=== PATIENT | male | born 1995 | race Caucasian/White ===

== ENCOUNTER 2020-09-21 05:48 | Emergency (ER) | payer SELFPAY ==
[2020-09-21 06:08] VITALS: BP 142/99; PULSE 98; RESP 16; TEMP 36.7; O2SAT 98; BMI 20.3
--- NOTE | 2020-09-21 06:17 | XRR_ITS ---
PROCEDURE INFORMATION: Exam: XR Cervical Spine Exam date and time: 09/21/2020 6:17 AM Age: 25 years old Clinical indication: Neck pain; Additional info: Pain/closed head injury TECHNIQUE: Imaging protocol: XR of the cervical spine. Views: 2 or 3 views. COMPARISON: No relevant prior studies available. FINDINGS: Bones/joints: The vertebral bodies maintain height and alignment. The facets align normally. The spinolaminar line is intact. The atlantodens interval is not widened. No disc space narrowing. No fracture. Soft tissues: No prevertebral soft tissue swelling. XR/XR cervical spine 3V* [id number] IMPRESSION: Normal.
--- NOTE | 2020-09-21 06:17 | CTR_ITS ---
PROCEDURE INFORMATION: Exam: CT Head Without Contrast Exam date and time: 09/21/2020 6:17 AM Age: 25 years old Clinical indication: Injury or trauma; Other: Close head injury; Laceration; Without residual foreign body; Head, generalized; Injury details: Cut above RT ear and on RT cheek; Additional info: Cleased head injury TECHNIQUE: Imaging protocol: Computed tomography of the head without contrast. Radiation optimization: All CT scans at this facility use at least one of these dose optimization techniques: automated exposure control; mA and/or kV adjustment per patient size (includes targeted exams where dose is matched to clinical indication); or iterative reconstruction. COMPARISON: No relevant prior studies available. RADIATION DOSE METRICS: Total DLP (mGy-cm): 698.67 FINDINGS: Brain: No acute appearing brain parenchymal abnormality. No intracranial hemorrhage. No extraaxial fluid collections. Cerebral ventricles: No hydrocephalus. Paranasal sinuses: The visualized paranasal sinuses are aerated. Mastoid air cells: The visualized mastoid air cells are aerated. Bones/joints: No calvarial fracture. Soft tissues: Right lateral scalp superficial soft tissue injury without radiopaque foreign body. CT/CT head wo con* [id number] IMPRESSION: No intracranial injury or calvarial fracture. Radiation Dose CTDIVOL = (mGy): DLP = 698.67 (mGy-cm)
--- NOTE | 2020-09-21 06:18 | W.ED.WOUNDLC ---
HPI - Wound/Laceration General: Chief Complaint: Wound/Laceration Stated Complaint: Cut on Face Time Seen by Provider: 09/21/20 06:06 History of Present Illness: HPI narrative: 25-year-old male presents emergency room with complaints of laceration to the face. He has a laceration to his right cheek and a small laceration just above the right ear. He is uncertain how he got those. Patient answers all questions regarding the circumstances of his injuries as I do not know I do not remember. He denies any other pain or injury anywhere else. Onset (ago): unknown Location: scalp and face Patient tetanus UTD: No Context: other (Patient does not recall) Associated symptoms: Denies chills, fever(s), foreign body sensation, inability to move, nausea, numbness, pain, syncope or vomiting Review of Systems Const: Denies: fever(s) or chills ENMT: Denies: throat pain, ear or mastoid pain, nasal discharge or nasal congestion Card: Denies: syncope Resp: Denies: dyspnea, productive cough or non-productive cough GI: Denies: nausea or vomiting : Denies: flank pain, dysuria, urinary frequency or urinary urgency Skin/Breast: Denies: rash or pruritus PFSH ED PFSH: Family History Other Anxiety Hypertension Social History Smoking and tobacco status: current every day smoker cigarettes Packs smoked per day: 1 Years cigarettes smoked: 10 Second hand smoke exposure: Yes Alcohol intake: current Alcohol intake frequency: 0-2 Drinks per Day Alcohol type: beer and hard liquor Lives independently: Yes Household members: family and children Marital status: service: No Current occupational status: employed Current gender identity: Male Special mika needs: No Agree to transfusion: Yes Physical Exam Const: COMMON NORMALS: no acute distress GENERAL APPEARANCE: cooperative and comfortable ORIENTATION/CONSCIOUSNESS: Yes awake, Yes oriented to person, Yes oriented to place and Yes oriented to time HENMT: COMMON NORMALS: normocephalic, hearing grossly normal bilaterally, external ears normal, EAC's normal, TM's normal bilaterally, Normal nasal mucous membranes and turbinates present, moist oral mucous membranes and oropharynx normal HEAD & SCALP: normocephalic NOSE: Normal nasal mucous membranes and turbinates present EXTERNAL EAR: Yes external ears normal EXTERNAL AUDITORY CANAL: EAC's normal TYMPANIC MEMBRANE: TM's normal bilaterally OTHER: Avulsion of skin across the right zygomatic arch there is an area about 1 cm leg 5 to 6 cm in width with the skin is fully avulsed him unable to approximate the skin edges. There are small short adjacent lacerations not amenable to repair. There is a laceration above the right ear and the scalp that is also a shallow avulsion type laceration there is a bit of viable skin present it hold disposition well. Mild erythema of all other within the outer helix of the right ear which also holds in position well and is not full-thickness. Eye: COMMON NORMALS: Equal, round and reactive pupils present, EOMs intact bilaterally, conjunctivae normal and no scleral icterus CONJUNCTIVA: Yes conjunctivae normal PUPIL: Yes Equal, round and reactive pupils present Neck/C-Spine: COMMON NORMALS: full ROM, no lymphadenopathy, supple and no JVD Resp: COMMON NORMALS: normal respiratory effort, No retractions, No use of accessory muscles and clear to auscultation bilaterally AUSCULTATION: clear to auscultation bilaterally Cardio: COMMON NORMALS: no JVD, regular rate, regular rhythm and No murmurs present (Cardio) RATE: regular rate RHYTHM: regular rhythm GI: COMMON NORMALS: Soft to palpation and No hepatosplenomegaly present AUSCULTATION: Yes normoactive bowel sounds PALPATION: Yes Soft to palpation, No Tenderness to palpation present (GI), No Guarding due to palpation present (GI) and Yes No hepatosplenomegaly present Extremity: COMMON NORMALS: normal to inspection, capillary refill normal, no clubbing, cyanosis or edema, no calf tenderness and no pedal edema Neuro: SENSORIUM/ORIENTATION: Yes oriented to person, Yes oriented to place and Yes oriented to time Skin: COMMON NORMALS: no rashes or lesions noted GENERAL SKIN EXAM: no rashes or lesions noted Course Vital Signs: Vital signs: Vital Signs Temperature 98.6 F 09/21/20 07:23 Pulse Rate 91 09/21/20 07:23 Respiratory Rate 16 09/21/20 07:23 Blood Pressure 134/98 09/21/20 07:23 Pulse Oximetry 98 09/21/20 07:23 MDM - Wound/Laceration MDM Narrative: Medical decision making narrative: None of these areas are really amenable to suturing. The avulsions in the scalp and on the right ear the skin is too viable placing sutures would not really improve cosmetic results and would likely strangulate of the tissue trying to be reapproximated. The avulsion on the right cheek there is no way to approximate without undermining extending and revising the wound fairly extensively. Would allow this to heal by secondary intent and he can pursue plastics revision if he has significant defect. At this point I would recommend that he use topical antibiotic. I did apply silver nitrate to areas in the ear and on the scalp that had bleeding. CT of the head x-ray of the neck are unremarkable. Patient repeatedly asked how this happened he either declines to answer and at other times says he just does not remember but will not discuss with us any of the events leading up to her surrounding it he simply states he does not remember. He denies loss of consciousness. Discharge Plan Discharge Patient Disposition: Home Clinical Impression: Avulsion of skin, Laceration Condition: Stable Prescriptions: No Action venlafaxine [Effexor XR] 75 mg capsule,extended release 24hr 75 mg PO QAM Qty: 30 RF: 0 Discharge Orders: Discharge ED (Routine); Ordered 09/21/20 Ordered By: Jonathan Milton Discharge Diet: Usual diet Discharge Activity: Increase activity as tolerated Patient Instructions: Opioid Safety Coding Level of Care Code ED Thoracic Medicine Specialist for Brianne Fwjarad Exam Comprehensive
[2020-09-21] MEDS: silver nitrate applicator 2 EACH TOPICAL (07:22)
[2020-09-21] MEDS: mupirocin oint 22 gm 1 APPLIC TOPICAL (07:22)
[2020-09-21 07:23] VITALS: BP 134/98; PULSE 91; RESP 16; TEMP 37; O2SAT 98
== END 2020-09-21 07:35 | disposition home or self-care (01) ==
PROVIDERS: Emergency Provider Family Medicine
DX: S01.311A Laceration without foreign body of right ear, initial encounter (principal); S01.01XA Laceration without foreign body of scalp, initial encounter; F17.210 Nicotine dependence, cigarettes, uncomplicated; X58.XXXA Exposure to other specified factors, initial encounter
CPT/HCPCS: 70450; 72040; 99283

== ENCOUNTER 2023-02-24 11:56 | Emergency (ER) | payer SELFPAY ==
[2023-02-24 12:22] VITALS: BP 127/82; PULSE 103; RESP 18; TEMP 36.7; O2SAT 99; BMI 20.3
[2023-02-24 12:26] LABS: Basophils # 0.1 10^3/uL (0.0-0.1); Basophils % 0.4 %; Eosinophils # 0.3 10^3/uL (0.0-0.8); Eosinophils % 2.7 %; Hematocrit 52.3 % (37-53); Lymphocytes # 2.4 10^3/uL (0.8-4.8); Lymphocytes % 20.5 %; Mean Corpuscular HGB Conc 32.7 g/dL (30-55); Mean Corpuscular Hemoglobin 31.1 pg (27-33); Mean Corpuscular Volume 95.1 fl (82-101); Mean Platelet Volume 10.3 fL (7.4-10.4); Monocytes # 0.8 10^3/uL (0.2-0.9); Monocytes % 6.5 %; Neutrophils # 8.26 10^3/uL (1.8-7.7); Neutrophils % 69.6 %; Nucleated Red Blood Cells % 0 %; Platelet Count 244 10^3/cmm (157-399); Red Cell Distribution Width 12.4 % (12.1-15.1); White Blood Count 11.88 10^3/uL (3.29-11.43)
[2023-02-24 12:46] LABS: Alanine Aminotransferase 19 U/L (0-41); Albumin Level 4.3 g/dL (3.5-5.2); Alkaline Phosphatase 75 U/L (40-130); Anion Gap 12.3 (5-19); Aspartate Amino Transferase 16 U/L (0-40); Blood Urea Nitrogen 8 mg/dL (6-20); Calcium 9.3 mg/dL (8.5-10.5); Carbon Dioxide 26 mmol/L (22-29); Chloride 106 mmol/L (98-107); Globulin 2.9 g/dL (1.3-4.6); Glomerular Filtration Rate 99.8 mL/min (90-130); Glucose 134 mg/dL (65-115); Lipase 26 U/L (13-60); Osmolality Calculated 290 mOsm/kg (285-295); Potassium 4.3 mmol/L (3.5-5.1); Sodium 140 mmol/L (136-145); Total Bilirubin 0.9 mg/dL (0.15-1.2); Total Protein 7.2 g/dL (6.6-8.7)
== END 2023-02-24 16:06 | disposition left against medical advice (07) ==
PROVIDERS: Emergency Medicine; Emergency Provider Family Medicine; PCP Family Medicine
DX: Z53.21 Procedure and treatment not carried out due to patient leaving prior to being seen by health care provider (principal)
CPT/HCPCS: 36415; 80053; 83690; 85025

== ENCOUNTER 2023-08-11 13:54 | Emergency (ER) | payer SELFPAY ==
[2023-08-11 14:00] VITALS: BP 140/71; PULSE 105; TEMP 36.7; O2SAT 98; BMI 20.6
[2023-08-11 14:58] LABS: Basophils # 0.1 10^3/uL (0.0-0.1); Basophils % 0.4 %; Eosinophils # 0.3 10^3/uL (0.0-0.8); Eosinophils % 1.9 %; Hematocrit 47.6 % (37-53); Lymphocytes # 2.1 10^3/uL (0.8-4.8); Lymphocytes % 15.7 %; Mean Corpuscular HGB Conc 32.1 g/dL (30-55); Mean Corpuscular Hemoglobin 30.5 pg (27-33); Mean Corpuscular Volume 94.8 fl (82-101); Mean Platelet Volume 9.8 fL (7.4-10.4); Monocytes % 7.5 %; Neutrophils # 9.88 10^3/uL (1.8-7.7); Neutrophils % 73.8 %; Nucleated Red Blood Cells % 0 %; Platelet Count 285 10^3/cmm (157-399); Red Blood Count 5.02 10^6/uL (3.85-5.65); Red Cell Distribution Width 13.2 % (12.1-15.1)
[2023-08-11 15:11] LABS: Alanine Aminotransferase 25 U/L (0-41); Albumin Level 4.1 g/dL (3.5-5.2); Alkaline Phosphatase 132 U/L (40-130); Anion Gap 14.9 (5-19); Aspartate Amino Transferase 26 U/L (0-40); Blood Urea Nitrogen 7 mg/dL (6-20); Carbon Dioxide 25 mmol/L (22-29); Chloride 101 mmol/L (98-107); Globulin 3.4 g/dL (1.3-4.6); Glomerular Filtration Rate 132.4 mL/min (90-130); Glucose 101 mg/dL (65-115); Osmolality Calculated 282 mOsm/kg (285-295); Potassium 3.9 mmol/L (3.5-5.1); Sodium 137 mmol/L (136-145); Total Bilirubin 0.6 mg/dL (0.15-1.2); Total Protein 7.5 g/dL (6.6-8.7)
[2023-08-11 15:26] LABS: Bilirubin Urine Neg (Negative); Blood Urine 3+ (Negative); Glucose Urine UA Norm (Normal); Ketones Urine Negative (Negative); Nitrate Urine Negative (Negative); Protein Urine 3+ (Negative); Sulfosalicylic Acid Urine Positive (Negative); Urine Appearance Cloudy (CLEAR); Urine Color Red (Yellow); Urobilinogen Urine Norm (Negative); pH Urine 9 (5-7)
[2023-08-11 15:27] LABS: Add Urine Microscopic? YES; Leukocyte Esterase Urine 1+ (Negative)
[2023-08-11 15:30] LABS: Add Urine Culture? Yes; Bacteria Urine 1+ /hpf; Mucus Urine TRACE /hpf; RBC Urine TOO NUMEROUS TO CNT /hpf (0-2)
--- NOTE | 2023-08-11 15:34 | CTR_ITS ---
PROCEDURE INFORMATION: Exam: CT Abdomen And Pelvis Without Contrast Exam date and time: 08/11/2023 3:45 PM Age: 28 years old Clinical indication: Other: Hematuria; Additional info: Blood in urine, back pain TECHNIQUE: Imaging protocol: Computed tomography of the abdomen and pelvis without contrast. Axial, coronal and sagittal reformatted images were created and reviewed. Radiation optimization: All CT scans at this facility use at least one of these dose optimization techniques: automated exposure control; mA and/or kV adjustment per patient size (includes targeted exams where dose is matched to clinical indication); or iterative reconstruction. COMPARISON: No relevant prior studies available. RADIATION DOSE METRICS: Total DLP (mGy-cm): 385.06 FINDINGS: Lungs: Linear stranding and groundglass at the lung bases, likely due to atelectasis and/or scarring. Pleural spaces: Nodular pleural thickening in the left lower lobe. Diaphragm: Small hiatal hernia. Liver: Mild hepatomegaly. Gallbladder and bile ducts: Subtle dependent hyperattenuation in the gallbladder lumen, likely secondary to sludge and/or small stones. Pancreas: Unremarkable. Spleen: Unremarkable. Adrenal glands: Normal. No mass. Kidneys and ureters: No mass. No radiodense calculi. No hydronephrosis. Stomach and bowel: No bowel wall thickening. No obstruction. No pneumatosis. Appendix: Normal. Intraperitoneal space: No free fluid. No organized fluid collection. No free air. Vasculature: Unremarkable. No aneurysm. Lymph nodes: No pathologically enlarged lymph nodes. Urinary bladder: Lobular dependent hyperattenuation in the urinary bladder, likely blood products. Reproductive: Unremarkable. Bones/joints: No acute osseous abnormality. Mild degenerative changes. Soft tissues: Unremarkable. CT/CT kidney stone [id number] IMPRESSION: 1. Lobular dependent hyperattenuation in the urinary bladder, likely blood products. If clinically indicated, cystoscopy may be useful to exclude an underlying mass lesion. 2. Additional findings, as above.
--- NOTE | 2023-08-11 15:40 | W.ED.MALEGU ---
Documented by User: BRIGHT Araya 08/11/23 16:26 HPI - Male Genitourinary General: Chief complaint: Urogenital-Male Stated complaint: Passing Blood Time Seen by Provider: 08/11/23 14:24 Source: patient Mode of arrival: ambulatory Limitations: no limitations History of Present Illness: Patient is a 28-year-old male presenting to the emergency department complaining of hematuria onset last night. He has had this in the past, states that it occurs after he has sexual intercourse. He also states that last night's onset of hematuria began after having intercourse. States he has been passing clots, and this is only continued to get worse as he has noticed continuing hematuria today. He also notes some burning with urination as well as some back pain. Denies any fever, nausea, vomiting, or other symptoms at this time. Denies history of STDs. No trauma reported. MD Complaint: other (Hematuria/dysuria) Onset (ago): day(s) Duration: constant Context: other (After sexual intercourse) Associated symptoms: Reports dysuria and hematuria; Deny nausea or vomiting Related Data: Sexually active: Yes Review of Systems General: Reports: 10 or more systems reviewed and unremarkable except in HPI and below Const: Denies: fever(s), chills, change in appetite, change in weight or diaphoresis ENMT: Denies: throat pain or hoarseness Card: Denies: chest pain, palpitations or lightheadedness Resp: Denies: dyspnea, productive cough or wheezing GI: Denies: abdominal pain, nausea, vomiting, diarrhea, constipation, bloating, change in stool character or hematochezia : Reports: dysuria and hematuria; Denies: flank pain, difficulty urinating, urinary frequency or urinary urgency Musc: Reports: back pain; Denies: neck pain Skin/Breast: Denies: rash or new lesions Neuro: Denies: headache(s) or dizziness PFSH ED PFSH: Family History Other Anxiety Hypertension Social History Smoking and tobacco/nicotine status: current every day tobacco/nicotine user cigarettes Packs smoked per day: 1 Years cigarettes smoked: 10 Second hand smoke exposure: Yes Alcohol intake: current Alcohol intake frequency: 0-2 Drinks per Day Alcohol type: beer and hard liquor Substance/Drug Use: never Lives independently: Yes Household members: family and children Marital status: service: No Current occupational status: employed Current gender identity: Male Special mika needs: No Agree to transfusion: Yes Physical Exam Const: COMMON NORMALS: no acute distress, average body habitus, patient oriented x3, no limitations, healthy appearing, alert and well nourished GENERAL APPEARANCE: cooperative and comfortable ORIENTATION/CONSCIOUSNESS: Yes awake HENMT: COMMON NORMALS: normocephalic, atraumatic, hearing grossly normal bilaterally, external ears normal, Normal external nose present, Normal nasal mucous membranes and turbinates present and moist oral mucous membranes HEAD & SCALP: normocephalic and atraumatic NOSE: Normal external nose present and Normal nasal mucous membranes and turbinates present EXTERNAL EAR: Yes external ears normal Eye: COMMON NORMALS: Equal, round and reactive pupils present, EOMs intact bilaterally, conjunctivae normal and normal visual rousseau by confrontation CONJUNCTIVA: Yes conjunctivae normal PUPIL: Yes Equal, round and reactive pupils present Neck/C-Spine: COMMON NORMALS: full ROM, supple, no meningeal signs and no JVD Resp: COMMON NORMALS: normal respiratory effort, No retractions, No use of accessory muscles and clear to auscultation bilaterally AUSCULTATION: clear to auscultation bilaterally, no crackles, no rales, no rhonchi and no wheezes Cardio: COMMON NORMALS: no JVD, regular rate, regular rhythm, S1 normal heart sound present, S2 normal heart sound present, No gallops present (Cardio), No clicks present (Cardio), No murmurs present (Cardio), No rub (Cardio) and Peripheral pulses 2+ throughout RATE: regular rate RHYTHM: regular rhythm HEART SOUNDS: S1 normal heart sound present and S2 normal heart sound present PERIPHERAL PULSES: Peripheral pulses 2+ throughout GI: COMMON NORMALS: Normal to inspection, nondistended, normoactive bowel sounds present, Soft to palpation, non-tender, No hepatosplenomegaly present and no masses AUSCULTATION: Yes normoactive bowel sounds PALPATION: Yes Soft to palpation, No Guarding due to palpation present (GI), No Rigid due to palpation and Yes No hepatosplenomegaly present RECTAL EXAM: Yes deferred : COMMON NORMALS: Yes no CVA tenderness BLADDER/KIDNEY EXAM: Yes no CVA tenderness Back/Pelvis: COMMON NORMALS: no CVA tenderness Extremity: COMMON NORMALS: normal to inspection and full ROM Neuro: COMMON NORMALS: patient oriented x3, moves all extremities, no focal motor deficits and no sensory deficits noted SENSORIUM/ORIENTATION: Yes alert MENINGEAL SIGNS: Yes no meningeal signs Psych: COMMON NORMALS: mental status grossly normal, cooperative and speech normal SPEECH: Yes normal speech Skin: COMMON NORMALS: no rashes or lesions noted GENERAL SKIN EXAM: no rashes or lesions noted Course Vital Signs: Vital signs: Vital Signs Temperature 98.0 F 08/11/23 14:00 Pulse Rate 96 08/11/23 16:44 Respiratory Rate 20 H 08/11/23 16:44 Blood Pressure 135/85 08/11/23 16:44 Pulse Oximetry 98 08/11/23 16:44 Oxygen Delivery Me thod Room Air 08/11/23 14:00 [facility] - Male Medical Decision Making Patient presented for hematuria beginning last night. History of same, which followed sexual intercourse. His urinalysis revealed signs of infection as well as significant amount of red blood cells, too numerous to quantify. I did run gonorrhea chlamydia from his urine, will follow these results however we will also treat empirically with a shot of ceftriaxone in the emergency department and doxycycline to take at home. I will refer him to urology for any further evaluation, potentially cystoscopy to evaluate for potential other etiologies of his hematuria, as CT abdomen pelvis cannot definitively rule out a mass lesion. His lab work was unremarkable. He will be discharged home with strict return precautions given. Lab Data 08/11/23 14:45 08/11/23 14:45 Radiology Impressions Abdomen/Pelvis CT 08/11/23 15:34 IMPRESSION: 1. Lobular dependent hyperattenuation in the urinary bladder, likely blood products. If clinically indicated, cystoscopy may be useful to exclude an underlying mass lesion. 2. Additional findings, as above. Laboratory Results WBC 13.40 10^3/uL (3.29-11.43) H 08/11/23 14:45 RBC 5.02 10^6/uL (3.85-5.65) 08/11/23 14:45 Hgb 15.30 g/dL (11.27-16.99) 08/11/23 14:45 Hct 47.6 % (37-53) 08/11/23 14:45 MCV 94.8 fl (82-101) 08/11/23 14:45 MCH 30.5 pg (27-33) 08/11/23 14:45 MCHC 32.1 g/dL (30-55) 08/11/23 14:45 RDW 13.2 % (12.1-15.1) 08/11/23 14:45 Plt Count 285 10^3/cmm (157-399) 08/11/23 14:45 MPV 9.8 fL (7.4-10.4) 08/11/23 14:45 Neut % (Auto) 73.8 % 08/11/23 14:45 Lymph % (Auto) 15.7 % 08/11/23 14:45 Cata[place] % (Auto) 7.5 % 08/11/23 14:45 Eos % (Auto) 1.9 % 08/11/23 14:45 Baso % (Auto) 0.4 % 08/11/23 14:45 Neut # (Auto) 9.88 10^3/uL (1.8-7.7) H 08/11/23 14:45 Lymph # (Auto) 2.1 10^3/uL (0.8-4.8) 08/11/23 14:45 [place]ata[place] # (Auto) 1.0 10^3/uL (0.2-0.9) H 08/11/23 14:45 Eos # (Auto) 0.3 10^3/uL (0.0-0.8) 08/11/23 14:45 Baso # (Auto) 0.1 10^3/uL (0.0-0.1) 08/11/23 14:45 Nucleated RBC % (auto) 0 % 08/11/23 14:45 Nucleated RBCs # 0.0 /100WBC 08/11/23 14:45 Sodium 137 mmol/L (136-145) 08/11/23 14:45 Potassium 3.9 mmol/L (3.5-5.1) 08/11/23 14:45 Chloride 101 mmol/L (98-107) 08/11/23 14:45 Carbon Dioxide 25 mmol/L (22-29) 08/11/23 14:45 Anion Gap 14.9 (5-19) 08/11/23 14:45 BUN 7 mg/dL (6-20) 08/11/23 14:45 Creatinine 0.7 mg/dL (0.7-1.2) 08/11/23 14:45 GFR Calculation 132.4 mL/min (90-130) H 08/11/23 14:45 Glucose 101 mg/dL (65-115) 08/11/23 14:45 Calculated Osmolality 282 mOsm/kg (285-295) L 08/11/23 14:45 Calcium 9.0 mg/dL (8.5-10.5) 08/11/23 14:45 Total Bilirubin 0.6 mg/dL (0.15-1.2) 08/11/23 14:45 AST 26 U/L (0-40) 08/11/23 14:45 ALT 25 U/L (0-41) 08/11/23 14:45 Alkaline Phosphatase 132 U/L (40-130) H 08/11/23 14:45 Total Protein 7.5 g/dL (6.6-8.7) 08/11/23 14:45 Albumin 4.1 g/dL (3.5-5.2) 08/11/23 14:45 Globulin 3.4 g/dL (1.3-4.6) 08/11/23 14:45 Urine Color Red (Yellow) A 08/11/23 14:59 Urine Appearance Cloudy (CLEAR) A 08/11/23 14:59 Urine pH 9 (5-7) H 08/11/23 14:59 Ur Specific [place] 1.010 (1.005-1.030) 08/11/23 14:59 Urine Protein 3+ (Negative) H 08/11/23 14:59 Urine Glucose (UA) Norm (Normal) 08/11/23 14:59 Urine Ketones Negative (Negative) 08/11/23 14:59 Urine Blood 3+ (Negative) H 08/11/23 14:59 Urine Nitrate Negative (Negative) 08/11/23 14:59 Urine Bilirubin Neg (Negative) 08/11/23 14:59 Prot Sulfosalicylic Acd Positive (Negative) 08/11/23 14:59 Urine Urobilinogen Norm mg/dL (Negative) 08/11/23 14:59 Ur Leukocyte Esterase 1+ (Negative) H 08/11/23 14:59 Urine RBC Too numerous to cnt /hpf (0-2) H 08/11/23 14:59 Urine WBC 5-10 /hpf (0-5) H 08/11/23 14:59 Ur Squamous Epith Cells None /hpf (0-5) 08/11/23 14:59 Amorphous Sediment Not Reportable 08/11/23 14:59 Urine Bacteria 1+ /hpf (NONE) H 08/11/23 14:59 Urine Mucus Trace /hpf 08/11/23 14:59 C.trachomatis RNA (TMA) Not detected (NOT DETECTED) 08/11/23 14:53 Chlamydia/GC Comment See note 08/11/23 14:53 N.gonorrhoeae RNA (TMA) Not detected (NOT DETECTED) 08/11/23 14:53 All radiology interpretation(s) finalized by discharge Discharge Plan Discharge Patient Disposition: Home Clinical Impression: Acute cystitis Condition: Stable Prescriptions: New doxycycline hyclate 100 mg tablet 100 mg PO BID 10 Days Qty: 20 0RF Discontinued doxycycline hyclate 100 mg capsule 100 mg PO BID 7 Days Qty: 14 0RF No Action buspirone 15 mg tablet See Rx Instructions .ROUTE .COMPLEX Qty: 30 0RF Dose Instruction: TAKE ONE TABLET BY MOUTH TWICE DAILY Rx Instructions: TAKE ONE TABLET BY MOUTH TWICE DAILY Discharge Orders: Discharge ED (Routine); Ordered 08/11/23 Ordered By: Sergio Pickard Referrals: Lucinda Powell MD [Primary Care Provider] - Discharge Diet: As Directed Discharge Activity: Increase activity as tolerated Patient Instructions: Hemorrhagic Cystitis Activity Restrictions/Additional Instructions: Take doxycycline as prescribed. Follow-up with urology for further evaluation. Plenty of fluids. Return with any new or concerning symptoms you may have. Coding Level of Care Code ED Credit And Collection Manager for Chg Fwd Documented by User: Jonathan Milton DO 08/19/23 07:07 HPI - Male Genitourinary General: Chief complaint: Urogenital-Male Stated complaint: Passing Blood Time Seen by Provider: 08/11/23 14:24 [facility] ED PFSH: Family History Other Anxiety Hypertension Social History Smoking and tobacco/nicotine status: current every day tobacco/nicotine user cigarettes Packs smoked per day: 1 Years cigarettes smoked: 10 Second hand smoke exposure: Yes Alcohol intake: current Alcohol intake frequency: 0-2 Drinks per Day Alcohol type: beer and hard liquor Substance/Drug Use: never Lives independently: Yes Household members: family and children Marital status: service: No Current occupational status: employed Current gender identity: Male Special mika needs: No Agree to transfusion: Yes Course Vital Signs: Vital signs: Vital Signs Temperature 98.0 F 08/11/23 14:00 Pulse Rate 96 08/11/23 16:44 Respiratory Rate 20 H 08/11/23 16:44 Blood Pressure 135/85 08/11/23 16:44 Pulse Oximetry 98 08/11/23 16:44 Oxygen Delivery Me thod Room Air 08/11/23 14:00 MDM - Male Medical Decision Making Patient presented for hematuria beginning last night. History of same, which followed sexual intercourse. His urinalysis revealed signs of infection as well as significant amount of red blood cells, too numerous to quantify. I did run gonorrhea chlamydia from his urine, will follow these results however we will also treat empirically with a shot of ceftriaxone in the emergency department and doxycycline to take at home. I will refer him to urology for any further evaluation, potentially cystoscopy to evaluate for potential other etiologies of his hematuria, as CT abdomen pelvis cannot definitively rule out a mass lesion. His lab work was unremarkable. He will be discharged home with strict return precautions given. Chart reviewed Lab Data 08/11/23 14:45 08/11/23 14:45 Radiology Impressions Abdomen/Pelvis CT 08/11/23 15:34 IMPRESSION: 1. Lobular dependent hyperattenuation in the urinary bladder, likely blood products. If clinically indicated, cystoscopy may be useful to exclude an underlying mass lesion. 2. Additional findings, as above. Laboratory Results WBC 13.40 10^3/uL (3.29-11.43) H 08/11/23 14:45 RBC 5.02 10^6/uL (3.85-5.65) 08/11/23 14:45 Hgb 15.30 g/dL (11.27-16.99) 08/11/23 14:45 Hct 47.6 % (37-53) 08/11/23 14:45 MCV 94.8 fl (82-101) 08/11/23 14:45 MCH 30.5 pg (27-33) 08/11/23 14:45 MCHC 32.1 g/dL (30-55) 08/11/23 14:45 RDW 13.2 % (12.1-15.1) 08/11/23 14:45 Plt Count 285 10^3/cmm (157-399) 08/11/23 14:45 MPV 9.8 fL (7.4-10.4) 08/11/23 14:45 Neut % (Auto) 73.8 % 08/11/23 14:45 Lymph % (Auto) 15.7 % 08/11/23 14:45 Cataño % (Auto) 7.5 % 08/11/23 14:45 Eos % (Auto) 1.9 % 08/11/23 14:45 Baso % (Auto) 0.4 % 08/11/23 14:45 Neut # (Auto) 9.88 10^3/uL (1.8-7.7) H 08/11/23 14:45 Lymph # (Auto) 2.1 10^3/uL (0.8-4.8) 08/11/23 14:45 [place]ata[place] # (Auto) 1.0 10^3/uL (0.2-0.9) H 08/11/23 14:45 Eos # (Auto) 0.3 10^3/uL (0.0-0.8) 08/11/23 14:45 Baso # (Auto) 0.1 10^3/uL (0.0-0.1) 08/11/23 14:45 Nucleated RBC % (auto) 0 % 08/11/23 14:45 Nucleated RBCs # 0.0 /100WBC 08/11/23 14:45 Sodium 137 mmol/L (136-145) 08/11/23 14:45 Potassium 3.9 mmol/L (3.5-5.1) 08/11/23 14:45 Chloride 101 mmol/L (98-107) 08/11/23 14:45 Carbon Dioxide 25 mmol/L (22-29) 08/11/23 14:45 Anion Gap 14.9 (5-19) 08/11/23 14:45 BUN 7 mg/dL (6-20) 08/11/23 14:45 Creatinine 0.7 mg/dL (0.7-1.2) 08/11/23 14:45 GFR Calculation 132.4 mL/min (90-130) H 08/11/23 14:45 Glucose 101 mg/dL (65-115) 08/11/23 14:45 Calculated Osmolality 282 mOsm/kg (285-295) L 08/11/23 14:45 Calcium 9.0 mg/dL (8.5-10.5) 08/11/23 14:45 Total Bilirubin 0.6 mg/dL (0.15-1.2) 08/11/23 14:45 AST 26 U/L (0-40) 08/11/23 14:45 ALT 25 U/L (0-41) 08/11/23 14:45 Alkaline Phosphatase 132 U/L (40-130) H 08/11/23 14:45 Total Protein 7.5 g/dL (6.6-8.7) 08/11/23 14:45 Albumin 4.1 g/dL (3.5-5.2) 08/11/23 14:45 Globulin 3.4 g/dL (1.3-4.6) 08/11/23 14:45 Urine Color Red (Yellow) A 08/11/23 14:59 Urine Appearance Cloudy (CLEAR) A 08/11/23 14:59 Urine pH 9 (5-7) H 08/11/23 14:59 Ur Specific [place] 1.010 (1.005-1.030) 08/11/23 14:59 Urine Protein 3+ (Negative) H 08/11/23 14:59 Urine Glucose (UA) Norm (Normal) 08/11/23 14:59 Urine Ketones Negative (Negative) 08/11/23 14:59 Urine Blood 3+ (Negative) H 08/11/23 14:59 Urine Nitrate Negative (Negative) 08/11/23 14:59 Urine Bilirubin Neg (Negative) 08/11/23 14:59 Prot Sulfosalicylic Acd Positive (Negative) 08/11/23 14:59 Urine Urobilinogen Norm mg/dL (Negative) 08/11/23 14:59 Ur Leukocyte Esterase 1+ (Negative) H 08/11/23 14:59 Urine RBC Too numerous to cnt /hpf (0-2) H 08/11/23 14:59 Urine WBC 5-10 /hpf (0-5) H 08/11/23 14:59 Ur Squamous Epith Cells None /hpf (0-5) 08/11/23 14:59 Amorphous Sediment Not Reportable 08/11/23 14:59 Urine Bacteria 1+ /hpf (NONE) H 08/11/23 14:59 Urine Mucus Trace /hpf 08/11/23 14:59 C.trachomatis RNA (TMA) Not detected (NOT DETECTED) 08/11/23 14:53 Chlamydia/GC Comment See note 08/11/23 14:53 N.gonorrhoeae RNA (TMA) Not detected (NOT DETECTED) 08/11/23 14:53 Discharge Plan Discharge Patient Disposition: Home Clinical Impression: Acute cystitis Condition: Stable Prescriptions: New doxycycline hyclate 100 mg tablet 100 mg PO BID 10 Days Qty: 20 0RF Discontinued doxycycline hyclate 100 mg capsule 100 mg PO BID 7 Days Qty: 14 0RF No Action buspirone 15 mg tablet See Rx Instructions .ROUTE .COMPLEX Qty: 30 0RF Dose Instruction: TAKE ONE TABLET BY MOUTH TWICE DAILY Rx Instructions: TAKE ONE TABLET BY MOUTH TWICE DAILY Discharge Orders: Discharge ED (Routine); Ordered 08/11/23 Ordered By: Sergio Pickard Referrals: Lucinda Powell MD [Primary Care Provider] - Discharge Diet: As Directed Discharge Activity: Increase activity as tolerated Patient Instructions: Hemorrhagic Cystitis Activity Restrictions/Additional Instructions: Take doxycycline as prescribed. Follow-up with urology for further evaluation. Plenty of fluids. Return with any new or concerning symptoms you may have. Coding Level of Care Code ED Credit And Collection Manager for Brianne Allen
[2023-08-11] MEDS: cefTRIAXone 1,000 MG in water for injection-sterile 2.1 ML 2.10000000000000009 MG IM (16:33)
--- NOTE | 2023-08-11 16:37 | DCPLANNER ---
Referral for Urology sent to [facility].
--- NOTE | 2023-08-11 16:41 | PC.NURSE ---
PT RECEIVED ROCEPHIN INJECTION AND DID NOT TOLERATE WELL. PT VERY JUMPY AND JERKING WHEN APPLYING ALCOHOL WIPE TO CLEANSE AREA PRIOR TO INJECTION. PT PUSHED AWAY THIS NURSE'S ARM TWICE PRIOR TO INJECTION. INJECTION ADMINISTERED IM TO RIGHT VENTROGLUTEAL AREA, PT DID NOT HOLD STILL DURING ADMINISTRATION AND PT BEGAN STATING FUCK THAT MCNEIL, IS IT SUPPOSED TO HURT LIKE THAT? SHIT. PT REASSURED THAT THE ROCEPHIN INJECTION BURN AND THAT THE BURNING SENSATION WILL SUBSIDE. PT THEN AMBULATED OUT WITH FAMILY. +
[2023-08-11 16:44] VITALS: BP 135/85; PULSE 96; RESP 20; O2SAT 98
[2023-08-13 16:03] LABS: Chlamydia Trachomatis RNA TMA NOT DETECTED (NOT DETECTED); Neisseria Gonorrhoeae RNA, TMA NOT DETECTED (NOT DETECTED)
== END 2023-08-11 16:45 | disposition home or self-care (01) ==
PROVIDERS: Emergency Medicine; Emergency Provider Physician Assistant; PCP Family Medicine
DX: N30.00 Acute cystitis without hematuria (principal); F17.210 Nicotine dependence, cigarettes, uncomplicated
CPT/HCPCS: 36415; 74176; 80053; 81001; 85025; 87086; 87491; 87591; 96372; 99284; J0696